=== PATIENT | female | born 2000 | race Caucasian/White ===

== ENCOUNTER 2024-05-04 09:17 | Emergency (ER) | payer OTHER, SELFPAY ==
--- NOTE | ~2024-05-04 | US_ITS ---
EXAMINATION: US OB <=14 wk fetus w TV DATE: 05/04/2024 11:13 INDICATION: Right adnexal pain during first trimester TECHNIQUE: Real-time pelvic ultrasound utilizing both a transvaginal and transabdominal probe was pe rformed. The interpreting radiologist was not present for the study. COMPARISON: None. FINDINGS: The uterus measures 8.5 x 4.0 x 5.0 cm. There is an intrauterine gestational sac. There is a subtle 1.5 mm diameter yolk sac with no discernible pole. The mean sac diameter measures 5 mm, which c orrelates with an estimated gestational age of 5 weeks and 2 days. The right ovary measures 2.5 x 1.9 x 1.0 cm. The left ovary measures 2.8 x 1.8 x 2.6 cm. And 1.6 cm t hick-walled centrally anechoic likely corpus luteum cyst in the left ovary. Vascular flow identified in both ovaries on color Doppler. There is no free fluid in the pelvis. IMPRESSION: 1. Single intrauterine gestational sac with yolk sac but no discernible pole yet apparent likel y due to early stage of . 2. Gestational age by ultrasound based upon mean sac diameter of 5 weeks 2 day(s) +/- 3 day(s) with ultrasound estimated date of delivery ([facility]) of 01/02/2025. Reviewed, dictated and finalized at location A. IMPRESSION: 1. Single intrauterine gestational sac with yolk sac but no discernible p ole yet apparent likely due to early stage of . 2. Gestational age by ultrasound based upon mean sac diameter of 5 weeks 2 day (s) +/- 3 day(s) with ultrasound estimated date of delivery ([facility]) of 01/02/2025.
[2024-05-04 09:20] VITALS: BP 120/56; PULSE 80; RESP 18; TEMP 36.8; O2SAT 96
[2024-05-04 09:31] LABS: BEDSIDEPREGUCG Positive (Negative)
--- NOTE | 2024-05-04 09:58 | PC.NURSE ---
Provider at bedside
[2024-05-04] MEDS: ONDANSETRON INJ 4 MG/2 ML VIAL IV PUSH (10:17)
[2024-05-04] MEDS: SODIUM CHLORIDE 0.9% IV 1,000 ML 999 ML IV CONT (10:17)
--- NOTE | 2024-05-04 10:29 | ED.NAVMDI ---
HPI - Nausea/Vomiting/Diarrhea General Chief complaint: Nausea/Vomiting/Diarrhea Stated complaint: hungover after sexxy red concert Time Seen by Provider: 05/04/24 09:31 History of Present Illness HPI Narrative: Patient is a 23-year-old female who presents ER with nausea vomiting. Began last night and has persisted in today. She has had issues with vomiting the past. No improvement with Zofran. No fevers or chills or sweats. No diarrhea. Patient has some lower abdominal cramping. No vaginal bleeding or discharge. Unknown last menstrual. test positive on arrival. Patient did not know she was . . Patient had been drinking alcohol at a concert last night. Related Data Allergies Allergy/AdvReac Type Severity Reaction Status Date / Time No Known Allergies Allergy Verified 05/04/24 10:17 Review of Systems Review of Systems: All systems reviewed & are unremarkable except as noted in HPI and below Constitutional: Constitutional: Reports no additional constitutional complaints ENT: Reports system reviewed and no additional complaints, except as documented Cardiovascular: Cardiovascular: Reports no additional cardiovascular complaints Respiratory: Respiratory: Reports no additional respiratory complaints Gastrointestinal: Gastrointestinal: Reports abdominal pain, Denies diarrhea, Reports nausea and Reports vomiting Genitourinary: Genitourinary: Denies abnormal vaginal bleeding, Reports pelvic pain, Denies flank pain and Denies vaginal discharge PMFSH Past Medical History Medical History (Updated 05/04/24 @ 12:21 by Tl Mahajan MD) Healthy female adult Surgical History Surgical History (Updated 05/04/24 @ 10:31 by Tl Mahajan MD) No history of previous surgery Exam Narrative: GENERAL: Well-appearing, well-nourished, and in no acute distress. HEAD: Normocephalic, atraumatic. ENT: Mucous membranes moist. NECK: Supple. CHEST: Clear to auscultation. No respiratory distress. HEART: Regular rate and rhythm. Normal peripheral pulses. ABDOMEN: Soft, tender palpation right adnexa/lower quadrant with guarding, nondistended. EXTREMITIES: Normal range of motion. No edema. SKIN: Warm, dry, no rash. NEURO: Alert and oriented x3. PSYCH: Normal mood and affect. Course Course Emergency Course: Patient informed of her new diagnosis of . No ectopic. Patient does have UTI. Discharge home with oral antibiotics. Will give OB referral. Vital Signs Vital signs: Vital Signs Temperature 98.2 F 05/04/24 09:20 Pulse Rate 80 05/04/24 09:20 Respiratory Rate 18 05/04/24 09:20 Blood Pressure 120/56 L 05/04/24 09:20 Pulse Oximetry 96 05/04/24 09:20 Oxygen Delivery Room Air 05/04/24 09:20 Temperature 98.2 F 05/04/24 09:20 Pulse Rate 80 05/04/24 09:20 Respiratory Rate 18 05/04/24 09:20 Blood Pressure 120/56 L 05/04/24 09:20 Pulse Oximetry 96 05/04/24 09:20 Oxygen Delivery Room Air 05/04/24 09:20 MDM - Nausea/Vomiting/Diarrhea Lab Data 05/04/24 10:19 05/04/24 09:56 Labs: Lab Results 05/04/24 05/04/24 05/04/24 Range/Units 09:29 09:56 10:16 WBC (4.5-10.0) K/mm3 RBC (4.2-5.4) M/mm3 Hgb (12.0-15.0) g/dL Hct (37.0-47.0) % MCV (80-100) fl MCH (26-34) pg MCHC (32-36) g/dl RDW (11.5-14.5) % Plt Count (150-375) k/mm3 MPV (7.4-10.4) fl Immature Gran % (Auto) (0-0.5) % Neut % (Auto) (45.5-73.1) % Lymph % (Auto) (18.3-44.2) % Cocke % (Auto) (2.6-8.5) % Eos % (Auto) (0-4.4) % Baso % (Auto) (0.2-1.2) % Lymph # (Auto) (0.9-3.2) K/mm3 Cocke # (Auto) (0.1-0.6) K/mm3 Eos # (Auto) (0-0.3) K/mm3 Baso # (Auto) (0.0-0.1) K/mm3 Abs Immat Gran (auto) (0.00-0.031) K/mm3 Absolute Neuts (auto) (1.3-6.7) K/mm3 Absolute Nucleated RBC (0.0-0.012) K/mm3 Nucleated RBC % (0.0-0.2) % Sodium 138
[2024-05-04 10:32] LABS: Basophils Percent Auto 0.2 % (0.2-1.2); Hematocrit 40.9 % (37.0-47.0); Hemoglobin 13.9 g/dL (12.0-15.0); Immature Granulocyte Absolute 0.04 K/mm3 (0.00-0.031); Immature Granulocyte Percent A 0.3 % (0-0.5); Lymphocytes Absolute Auto 1.52 K/mm3 (0.9-3.2); Lymphocytes Percent Auto 11.5 % (18.3-44.2); Mean Corpuscular Hemoglobin 30.3 pg (26-34); Mean Corpuscular Volume 89.1 fl (80-100); Mean Platelet Volume 10.1 fl (7.4-10.4); Monocytes Absolute Auto 0.3 K/mm3 (0.1-0.6); Neutrophils Absolute Auto 11.4 K/mm3 (1.3-6.7); Platelet Count Result 258 k/mm3 (150-375); Red Blood Count 4.59 M/mm3 (4.2-5.4); Red Cell Distribution Width 12.5 % (11.5-14.5); White Blood Count 13.2 K/mm3 (4.5-10.0)
[2024-05-04 10:43] LABS: Alanine Aminotransferase 22 U/L (6-35); Albumin Level 5.2 g/dL (3.5-5.1); Alkaline Phosphatase 86 U/L (38-126); Anion Gap 14 mmol/L (4-12); Aspartate Amino Transferase 32 U/L (14-36); Bilirubin,Total 0.5 mg/dL (0.2-1.3); Blood Urea Nitrogen 8 mg/dL (7-17); Calcium 9.9 mg/dL (8.4-10.2); Carbon Dioxide 23 mmol/L (22-30); Chloride 101 mmol/L (98-107); Estimated CRCL calculation 108 ml/min; Estimated Glomerular Filt Rate > 60; Glucose 77 mg/dL (65-110); Potassium 3.8 mmol/L (3.4-5.0); Sodium 138 mmol/L (137-145)
[2024-05-04] MEDS: Please add drug allergy info to patient profile. XX (10:46)
[2024-05-04 10:54] LABS: Add Urine Microscopic? YES; Appearance Urine Turbid (Clear); Bacteria Urine 4+ /hpf; Bilirubin Urine Negative (Negative); Blood Urine Non-Hemolyzed Trace (Negative); Color Urine Yellow (Yellow); Glucose Urine UA Negative (Negative); Ketones Urine 4+ mg/dL (Negative); Leukocyte Esterase Ur 2+ LEU/UL (Negative); Mucus Urine Present /lpf; Nitrate Urine Negative (Negative); Protein Urine 2+ mg/dL (Negative); Specific Grav Ur 1.029 (1.001-1.035); Squamous Epithelial Cell Urine Many /hpf (Few); WBC Urine 51-100 /hpf (0-3); pH Urine 5.5 (5.0-9.0)
[2024-05-04 12:15] VITALS: BP 120/72; PULSE 71; RESP 19; O2SAT 100
[2024-05-04 12:34] VITALS: BP 119/68; PULSE 83; RESP 18; TEMP 36.6; O2SAT 100
== END 2024-05-04 12:36 | disposition home or self-care (01) ==
PROVIDERS: Emergency Provider Emergency Medicine
DX: O23.40 Unspecified infection of urinary tract in pregnancy, unspecified trimester (principal); N39.0 Urinary tract infection, site not specified; Z3A.00 Weeks of gestation of pregnancy not specified
CPT/HCPCS: 36415; 76801; 76817; 80053; 81001; 81025; 84702; 85025; 87086; 87088; 96361; 96374; 99284; J2405; J7030